=== PATIENT | female | born 1945 | race Caucasian/White ===

== ENCOUNTER 2020-07-24 12:01 | Observation (INO) ==
[2020-07-24] MEDS ORDERED: ONDANSETRON 4 MG/2 ML VIAL IV STA (12:51)
[2020-07-24] MEDS ORDERED: MORPHINE 4 MG/1 ML VIAL IV STA (12:51)
[2020-07-24] MEDS ORDERED: SODIUM CHLORIDE 0.9% 1,000 ML IV STA (12:52)
[2020-07-24 13:06] LABS: Basophils # 0.1 10*3/uL (0.0-0.2); Eosinophils % 0.6 % (0.00-10.9); Hematocrit 43.1 VOL% (35.7-47.0); Hemoglobin 13.8 GM/DL (12.0-16.0); Immature Granulocytes % 0.4 %; Immature Granulocytes Absolute 0.02 #; Lymphocytes # 0.9 10*3/uL (1.4-4.0); Lymphocytes % 18.8 % (21.3-54.2); Mean Corpuscular Volume 92.5 FL (87-102); Monocytes % 7.3 % (1.7-12.7); Neutrophils % 71.9 % (38.7-73.9); Platelet Count 271 T/CUMM (130-400); Red Blood Count 4.66 MC/CUMM (3.8-5.5); Red Cell Distribution Width 12.5 % (9.3-17.3); White Blood Count 4.8 T/CUMM (4-12)
[2020-07-24 13:16] LABS: Albumin 4.5 G/DL (3.4-5.0); Bilirubin,Total 0.5 MG/DL (0.2-1.0); Calcium 10.2 MG/DL (8.5-10.1); Osmolality,Calculated 289.5 MOS/KG (273-304); Total Protein 8.2 G/DL (6.4-8.3)
[2020-07-24] MEDS ORDERED: ONDANSETRON 4 MG/2 ML VIAL IV PRN (16:31)
[2020-07-24] MEDS ORDERED: DEXTROSE 50% 25 GM/50 ML VIAL IV PRN ×2 (16:31)
[2020-07-24] MEDS ORDERED: GLUCAGON 1 MG VIAL IM PRN ×2 (16:31)
[2020-07-24] MEDS ORDERED: ENOXAPARIN 30 MG/0.3 ML SYRINGE SUBCUT SCH (17:00)
[2020-07-24] MEDS: ACETAMINOPHEN 325 MG TABLET PO PRN (18:32)
[2020-07-24] MEDS ORDERED: traZODone 50 MG TABLET PO SCH (21:00)
[2020-07-24] MEDS ORDERED: ASPIRIN EC 81 MG TABLET PO SCH (21:00)
[2020-07-24] MEDS: INSULIN LISPRO 100 UNIT/ML SUBCUT SCH (21:22)
[2020-07-25] MEDS ORDERED: SODIUM CHLORIDE 0.9% 500 ML IV ONE (04:22)
[2020-07-25 05:25] LABS: Basophils % 0.8 % (0.0-0.8); Eosinophils # 0.1 10*3/uL (0.0-0.87); Eosinophils % 2.1 % (0.00-10.9); Hematocrit 36.5 VOL% (35.7-47.0); Immature Granulocytes % 0.5 %; Immature Granulocytes Absolute 0.02 #; Lymphocytes # 1.2 10*3/uL (1.4-4.0); Lymphocytes % 30.7 % (21.3-54.2); Mean Corpuscular HGB Conc 32.1 GM/DL (32-36); Mean Corpuscular Volume 92.9 FL (87-102); Mean Platelet Volume 9.5 FL (9.6-12.0); Monocytes % 11.7 % (1.7-12.7); Neutrophils % 54.2 % (38.7-73.9); Red Blood Count 3.93 MC/CUMM (3.8-5.5); Red Cell Distribution Width 12.5 % (9.3-17.3); White Blood Count 3.8 T/CUMM (4-12)
[2020-07-25 05:32] LABS: Hemoglobin 11.7 GM/DL (12.0-16.0); Platelet Count 212 T/CUMM (130-400)
[2020-07-25 06:02] LABS: Osmolality,Calculated 288.3 MOS/KG (273-304)
[2020-07-25] MEDS: INSULIN LISPRO 100 UNIT/ML SUBCUT SCH ×2 (08:18→11:54)
[2020-07-25] MEDS ORDERED: LEVOTHYROXINE 100 MCG TABLET PO SCH (09:00)
[2020-07-25] MEDS ORDERED: COENZYME Q10 100 MG CAPSULE PO SCH (09:00)
[2020-07-25] MEDS ORDERED: LOSARTAN 50 MG TABLET PO SCH (09:00)
[2020-07-25] MEDS ORDERED: NON-FORMULARY MEDICATION (Semaglutide [Ozempic] 0.25 mg or 0.5 mg(2 mg/1.5 mL) Pen Injecto SUBCUT SCH (09:00)
[2020-07-25] MEDS: ACETAMINOPHEN 325 MG TABLET PO PRN (09:40)
[2020-07-25 11:55] VITALS: BP 122/64
== END 2020-07-25 13:23 | disposition home or self-care (01) ==
LOC: N.EDINP 12:01 → N.ED 12:01 → N.TELES 18:01
PROVIDERS: ADMIT Internal Medicine Geriatric Medicine; ATTEND Internal Medicine Geriatric Medicine